=== PATIENT | female | born 1955 | race Two or more races ===

== ENCOUNTER 2017-04-29 15:42 | Emergency (ER) | payer MEDICAID ==
[~2017-04-29] VITALS: Ht 165.1 cm; Wt 82.0 kg
[~2017-04-29 15:42] MED LIST: ALLO100T PO; ATOR10TA69 PO; DILT180C69 PO; FURO80TA87 PO; GABA100C PO; HYDR-519 PO; INSU100V3 SUBCUT; NEPVIT PO; P20 PO; coumadin PO
[2017-04-29] MEDS ORDERED: MAGNESIUM/ALUMINUM HYDROXIDE/SIMETHICONE 30ML UDC PO STA (16:08)
[2017-04-29] MEDS ORDERED: MORPHINE SULFATE 4 MG/ML CPJ (NOT FOR IM USE) IV STA (16:08)
[2017-04-29] MEDS ORDERED: ONDANSETRON HCL 4MG/2ML VIAL IV STA (16:08)
[2017-04-29] MEDS ORDERED: FAMOTIDINE 20MG/2ML VIAL IV STA (16:08)
[2017-04-29] MEDS ORDERED: SODIUM CHLORIDE 0.9% 250 ML IV ONE (16:08)
[2017-04-29 16:50] LABS: HEMATOCRIT. 32.3 % (36.0-48.0); HEMOGLOBIN. 10.4 g/dL (12.0-16.0); MEAN CORPUSCULAR HEMOGLOBIN 31.1 pg (28.0-32.0); MEAN CORPUSCULAR VOLUME 96.3 fL (81.0-99.0); MEAN PLATELET VOLUME 7.6 fl (7.4-10.4); PLATELET 207 x1000/uL (130-400); RED BLOOD CELL COUNT 3.35 mill/uL (4.2-5.4); RED CELL DISTRIBUTION WIDTH 16.8 % (11.6-14.6)
[2017-04-29 16:56] LABS: INR 1.1; PROTHROMBIN TIME 11.4 sec
[2017-04-29 16:57] LABS: CHLORIDE 106 mEq/L (98-107)
[2017-04-29 17:00] LABS: CARBON DIOXIDE 24 mEq/L (21-32); ETHANOL BLOOD < 10 mg/dL
[2017-04-29 17:06] LABS: TROPONIN I < 0.02 ng/mL (0.00-0.04)
[2017-04-29 17:32] LABS: PLATELET ESTIMATE NORMAL
[2017-04-29 22:15] VITALS: BP 128/86
== END 2017-04-30 01:00 | disposition home or self-care (01) ==
LOC: ER 16:22 → CANBEDREQ 04-30 03:34
DX: R07.9 Chest pain, unspecified (principal); R10.13 Epigastric pain; E11.9 Type 2 diabetes mellitus without complications; J44.9 Chronic obstructive pulmonary disease, unspecified; I11.0 Hypertensive heart disease with heart failure; I50.9 Heart failure, unspecified; I48.91 Unspecified atrial fibrillation; I25.2 Old myocardial infarction; Z99.2 Dependence on renal dialysis
CPT/HCPCS: 36415; 71010; 76700; 80053; 83605; 83690; 83880; 84484; 85025; 85610; 93005; 93970; 96361; 96374; 96375; 99285; G0482; J2270; J2405; J3490; J7040; Z7610; J7030; J7050